=== PATIENT | female | born 1990 | race Caucasian/White ===

== ENCOUNTER 2018-01-01 16:00 | Emergency (ER) | payer BC ==
[~2018-01-01] VITALS: Ht 172.7 cm; Wt 70.3 kg
[2018-01-01 16:14] VITALS: BP 116/78
[2018-01-01] MEDS ORDERED: Acetaminophen 500mg (ES) tab ORAL ONE (16:15)
[2018-01-01] MEDS ORDERED: ROBAXIN500 MG PO (17:00)
[2018-01-01] MEDS ORDERED: TYLENOL EXTRA500 MG ORAL (17:00)
--- NOTE | 2018-01-01 17:00 | Emergency Room Report ---
History of Present Illness General Chief Complaint: Shoulder Injury Source: Patient (Keith Jacques) Present Illness HPI 27-year-old female patient presents ER complaining of left shoulder pain since yesterday. Patient reports that she was at a carnival yesterday and while on right she had to pull herself using her left arm to the side to avoid " squashing a friend". patient reports she did not notice pain symptoms at that time. Reports pain this morning with decreased range of motion of left shoulder. Denies TTP, reports pain with movement. Patient reports she is right- hand dominant. Denies other acute symptoms. Denies taking medication for her symptoms. (Keith Jacques) Allergies: Coded Allergies: No Known Allergies (Unverified , 01/01/18) Patient History Past Medical History: see triage record Last Menstrual Period: 11/30/17 Reviewed Nursing Documentation: PMH: Agreed; PSxH: Agreed (Keith Jacques) Nursing Documentation-PMH Past Medical History: No Stated History (Keith Jacques) Review of Systems All Other Systems: negative except mentioned in HPI (Keith Jacques) Physical Exam Vital Signs Date Time Temp Pulse Resp B/P (MAP) Pulse Ox O2 Delivery O2 Flow Rate FiO2 01/01/18 16:08 97.6 70 18 116/78 96 Room Air 97.5 Sp02 EP Interpretation: reviewed, normal General Appearance: well appearing, no apparent distress, alert, GCS 15, non- toxic Head: normocephalic, atraumatic Eyes: bilateral eye normal inspection, bilateral eye PERRL Neck: full range of motion Respiratory: lungs clear, normal breath sounds, no rhonchi, no respiratory distress, no accessory muscle use, no wheezing, speaking full sentences Cardiovascular #1: regular rate, rhythm, no edema Cardiovascular #2: 2+ radial (R), 2+ radial (L) Musculoskeletal: back normal, digits/nails normal, gait/station normal, non- tender, decreased range of motion - secondary to pain, other - NVI, axillary and radial nerve intact, no wrist drop, negative sulcus sign, negative empty can test, positive Ellis Neurologic: alert, oriented x3, responsive, motor strength/tone normal, sensory intact Psychiatric: mood/affect normal (Keith Jacques) Medical Decision Making PA Attestation Dr. Turner is my supervising Physician whom patient management has been discussed with. (Keith Jacques) Diagnostic Impression: Primary Impression: Shoulder injury ER Course Pt. presents to the ED c/o shoulder pain. Ddx considered but are not limited to fracture, sprain, strain, contusion, dislocation. No erythema, no warmth to touch, no fever, nontoxic appearing, low suspicion for septic joint. Vital signs: are WNL, pt. is afebrile Ordered X-ray and pain medication. ER COURSE Provided with pain medication. Decreased active range of motion secondary to pain, full PROM, pain with forward flexion above 90, positive Ellis sign for pain, negative empty can test, negative sulcus sign, low suspicion for dislocation. An X-ray of the left shoulder was ordered, results show no acute fracture or dislocation, per the preliminary reading. Informed patient likely and versus rotator cuff injury versus muscle strain. Needs further imaging outpatient. Follow-up with PCP for further treatment and referral. Arm sling was applied to the left shoulder was checked afterwards by me showing good alignment and support with distal neurovascular functioning intact. Patient instructed on RICE method: rest, ice, compression, elevation. Patient instructed to WBAT. Followup with primary care provider for medical clearance to return to activities. Discuss referral to ortho/pain management/PT as needed. Discuss further imaging with MRI/CT as needed. DISCHARGE: -Rx provided for Tylenol for pain symptoms. -Rx provided for Methocarbamol. SE drowsiness, do not drink, drive, or operate heavy machinery while using. At this time pt. is stable for d/c to home. Patient is resting comfortably, in no acute distress, nontoxic appearing, talking without difficulty. Will provide printed patient care instructions, and any necessary prescriptions. Patient instructed to follow with primary care provider in 3 - 5 days and to request further orthopedic follow-up. Care plan and follow up instructions have been discussed with the patient prior to discharge. Take medications as directed. Patient questions asked and answered. Patient reports understanding and agreement to treatment plan. ER precautions given, patient instructed to return to ER immediately for any new or worsening of symptoms. - Please note that this Emergency Department Report was dictated using [employer] market analysis technology software, occasionally this can lead to erroneous entry secondary to interpretation by the dictation equipment. (Keith Jacques) Other X-Ray Diagnostic Results Other X-Ray Diagnostic Results : X-Ray ordered: left shoulder # of Views/Limited Vs Complete: 3 View Indication: Pain EP Interpretation: Yes PA Xray: Interpretation reviewed, by supervising MD, and agrees with findings. Interpretation: no dislocation, no soft tissue swelling, no fractures Impression: No acute disease PA Scribe Text Ajay Jacques PA-C (Keith Jacques) Other X-Ray Diagnostic Results : Electronically Signed by: Scribe documentation reviewed by me and is accurate, Blaze Turner MD. (Blaze Turner M.D.) Last Vital Signs Date Time Temp Pulse Resp B/P (MAP) Pulse Ox O2 Delivery O2 Flow Rate FiO2 01/01/18 16:21 97.5 01/01/18 16:14 68 18 116/78 96 Room Air (Keith Jacques) Disposition: HOME, SELF-CARE Condition: Stable Scripts Methocarbamol* (ROBAXIN*) 500 Mg Tablet 500 MG PO TID, #10 TAB 0 Refills Prov: Keith Jacques 01/01/18 Acetaminophen* (TYLENOL EXTRA STRENGTH*) 500 Mg Tablet 500 MG ORAL Q8H PRN for Prn Headache/Temp > 101, #30 TAB 0 Refills Prov: Keith Jacques 01/01/18 Referrals: NOT CHOSEN IPA/,REFERRING (PCP) Patient Instructions: Generic Shoulder Exercises-SportsMed, Shoulder Pain, Shoulder Sprain Additional Instructions: Patient instructed to follow up with primary care provider and discuss further referral to orthopedics and/or physical therapy. Patient instructed on RICE method: rest, ice, compression, elevation. Patient instructed to WBAT. Take medications as directed. Muscle relaxant may cause drowsiness, do not take prior to drinking, driving, or operating heavy machinery. Patient questions asked and answered. ER precautions given, patient instructed to return to ER immediately for any new or worsening of symptoms. Keith Jacques January 01, 2018 17:00 Blaze Turner M.D. January 02, 2018 02:45
[2018-01-01 17:18] VITALS: BP 116/78
--- NOTE | 2018-01-02 09:11 | Diagnostic Imaging Report ---
Indication: Reason For Exam: PAIN Technique: Left shoulder, 3 views Comparison: None. Findings: The osseous structures are intact. There is no fracture or destruction. The visualized joints are normal. The soft tissues are unremarkable. Impression: Normal.
== END 2018-01-01 17:19 | disposition home or self-care (01) ==
LOC: EMR 16:40
DX: S49.92XA Unspecified injury of left shoulder and upper arm, initial encounter (principal); X50.9XXA Other and unspecified overexertion or strenuous movements or postures, initial encounter; Y92.89 Other specified places as the place of occurrence of the external cause
CPT/HCPCS: 99284